=== PATIENT | female | born 1980 | race Caucasian/White ===

== ENCOUNTER 2020-01-27 08:30 | Emergency (ER) | payer MEDICAID ==
[2020-01-27] MEDS ORDERED: Acetaminophen 500 MG Tab PO ONE (08:55)
[2020-01-27] MEDS ORDERED: Ibuprofen 400 MG Tab PO ONE (08:55)
--- NOTE | 2020-01-27 08:55 | EDM.PDOC ---
ED HPI GENERAL MEDICAL PROBLEM - General Chief Complaint: Genitourinary Problem Stated Complaint: POSSIBLE UTI Time Seen by Provider: 01/27/20 08:30 Source of Information: Reports: Patient History Limitations: Reports: No Limitations - History of Present Illness INITIAL COMMENTS - FREE TEXT/NARRATIVE: 39-year-old female with a past medical history of glioblastoma status post res ection presenting with concern for UTI. Reports a 2-day history of dysuria, urinary frequency, and sensation of incomplete emptying. States that she has had UTIs prior and feels identical now. Denies any fever, vomiting, or flank pain. No vaginal bleeding or discharge, no genital lesions. No concern for STI symptoms. No other complaints. Past medical history: Reviewed, no additional pertinent history. Surgical history: Reviewed in system, no additional pertinent history. Social history: Reviewed in system, no additional pertinent history. Family history: Reviewed in system, no additional pertinent history. PHYSICAL EXAM Vital signs reviewed. Nursing notes reviewed. Constitutional: Awake, alert, non-distressed. Head: Normocephalic, atraumatic. Eyes: EOMI, conjunctiva normal, no discharge, no scleral icterus. Ears, Nose, Throat: External ears and nose normal, moist oral mucosa. Cardiovascular: 2+ radial pulse, capillary refill less than 2 seconds. Pulmonary: normal work of breathing, no accessory muscle use. Abdomen/GI: Soft, nontender, nondistended, no guarding or rigidity, no masses. Musculoskeletal: No deformities. Integumentary: Appropriate color for ethnicity, warm, dry, no pallor or jaundice, no rash. Neurologic: Alert, answering questions appropriately, normal speech, no facial droop, moving all extremities well. Psychiatric: Appropriate mood and affect, normal thought process. back/bladder Pain Score (Numeric/FACES): 8 - Related Data Allergies Allergy/AdvReac Type Severity Reaction Status Date / Time No Known Allergies Allergy Verified 01/27/20 08:36 Home Meds: Home Meds Phenazopyridine [Pyridium] 200 mg PO TID 3 Days #9 tab 01/27/20 [Rx] nitrofurantoin macrocrystaL [Nitrofurantoin] 100 mg PO BID 5 Days #10 capsule 01/27/20 [Rx] Past Medical History Neurological History: Reports: Other (See Below) Other Neuro History: pt states, "brain surgery." - Infectious Disease History Infectious Disease History: Reports: None Social & Family History - Family History Family Medical History: Noncontributory - Tobacco Use Smoking Status *Q: Current Every Day Smoker Years of Tobacco use: 5 Packs/Tins Daily: 1 - Recreational Drug Use Recreational Drug Use: No ED ROS GENERAL - Review of Systems Review Of Systems: See Below ED EXAM, RENAL/ - Physical Exam Exam: See Below Course - Vital Signs Text/Narrative:: Patient hemodynamically stable, afebrile, well-appearing, looks nontoxic. Differential diagnosis includes but is not limited to: Cystitis, pyelonephritis, etc. Well-appearing, no systemic signs of illness. No rigors, chills, or fever. No flank pain. Low suspicion for pyelonephritis or sepsis at this point. Patient is well-appearing and stable to discharge home with outpatient antibiotics including nitrofurantoin, short course of Pyridium, acetaminophen, and ibuprofen. Empiric treatment, urinalysis not needed per AAFP guidelines. Patient is immunocompetent, no history of chemotherapy, radiation, immunosuppression, or immunocompromise to warrant urinalysis or culture at this point. Plan: Patient is stable to discharge home with outpatient primary care clinic follow-up. Strict emergency department return precautions were provided, patient indicated understanding. All questions were answered prior to departure. Discharged in good condition. Last Recorded V/S: Last Vital Signs Temp 35.9 C L 01/27/20 08:37 Pulse 73 01/27/20 08:37 Resp 18 01/27/20 08:37 BP 117/71 01/27/20 08:37 Pulse Ox 99 01/27/20 08:37 - Orders/Labs/Meds Meds: Medications Discontinued Medications Generic Name Dose Route Start Last Admin Trade Name Freq PRN Reason Stop Dose Admin Acetaminophen 1,000 mg 01/27/20 08:55 Tylenol Extra Strength PO 01/27/20 08:56 ONETIME ONE Ibuprofen 400 mg 01/27/20 08:55 Motrin PO 01/27/20 08:56 ONETIME ONE Departure - Departure Time of Disposition: 08:53 Disposition: Home, Self-Care 01 Clinical Impression: UTI, Urinary tract infectious disease - Discharge Information *PRESCRIPTION DRUG MONITORING PROGRAM REVIEWED*: Not Applicable *COPY OF PRESCRIPTION DRUG MONITORING REPORT IN PATIENT JOSE: Not Applicable Prescriptions: nitrofurantoin macrocrystaL [Nitrofurantoin] 100 mg PO BID 5 Days #10 capsule Phenazopyridine [Pyridium] 200 mg PO TID 3 Days #9 tab Instructions: Urinary Tract Infection, Adult Referrals: [facility] [Provider Group] - 1 Week (As needed for follow-up of symptoms.) Forms: ED Department Discharge Additional Instructions: You were seen in the emergency department for concern for a bladder infection. I am going to prescribe some antibiotics to the pharmacy along with a medication called Pyridium, which can help with bladder pain due to a UTI. You can also take [id number] Tylenol or ibuprofen as needed for pain. Warning signs to come back to the ER include fever of 100.4 or higher, chills, repeated vomiting, or flank pain. These are signs of potentially worsening infection or a kidney infection, and you would need to come back to the ER for reevaluation. Please return the emergency department immediately if your symptoms worsen or if you feel worse. Thank you for choosing the [facility] emergency department in [place] for your medical needs today. It was a pleasure caring for you. The following information is given to patients seen in the emergency department who are being discharged. This information is to outline your options for follow-up care. We provide all patients seen in our emergency department with a follow-up referral. The need for follow-up, as well as the timing and circumstances, are variable depending upon the specifics of your emergency department visit. If you don't have a primary care physician on staff, we will provide you with a referral. We always advise you to contact your personal physician following an emergency department visit to inform them of the circumstance of the visit and for follow-up with them and/or the need for any referrals to a consulting specialist. The emergency department will also refer you to a specialist when appropriate. This referral assures that you have the opportunity for follow-up care with a specialist. All of these measure are taken in an effort to provide you with optimal care, which includes your follow-up. Under all circumstances we always encourage you to contact your private physician who remains a resource for coordinating your care. When calling for follow-up care, please make the office aware that this follow-up is from your recent emergency room visit. If for any reason you are refused follow-up, please contact the [facility] Emergency Department at and asked to speak to the emergency department charge nurse. If you do not have a primary care physician that is caring for you, you can contact these clinics below to set up an appointment to establish care: Tanvi Kam [facility] - Primary [facility] [address] [place] [id number] [facility] [address] [place] [id number] Sepsis Event Note (ED) - Evaluation Sepsis Screening Result: No Definite Risk - Focused Exam Vital Signs: Vital Signs Temp Pulse Resp BP Pulse Ox 01/27/20 08:37 35.9 C L 73 18 117/71 99
== END 2020-01-27 09:05 | disposition home or self-care (01) ==
LOC: MW.ED 08:30
DX: N39.0 Urinary tract infection, site not specified (principal); F17.210 Nicotine dependence, cigarettes, uncomplicated
CPT/HCPCS: 99283; A9270; 99282